=== PATIENT | female | born 1965 | race Caucasian/White ===

== ENCOUNTER 2024-06-09 23:23 | Emergency (ER) | payer MEDICAID ==
[~2024-06-09] VITALS: Ht 149.9 cm; Wt 54.4 kg
[2024-06-09 23:39] VITALS: BP 124/59; PULSE 67; RESP 16; TEMP 96.8; O2SAT 100
--- NOTE | 2024-06-09 23:47 | NUR ---
TO BED 6 FOLLOWING TRIAGE
[2024-06-09 23:48] VITALS: BP 124/59; PULSE 67; RESP 16; TEMP 96.8
[2024-06-10] VITALS: O2SAT 97
--- NOTE | 2024-06-10 | NUR ---
58YR OLD FEMALE AOX4 BIB SELF C/O SHORTNESS OF BREATH FOR THE LAST 2 DAYS. PT ALSO C/O ASSOCIATED CHEST PAIN, NON RADIATING. PT DENIES ANY FEVER, CHILLS, HX OF ASTHMA, OR ANY OTHER COMPLAINTS AT THIS TIME. PT IN BED WITH HOB ELEVATED, CALL LIGHT WITHIN REACH. FAMILY AT BEDSIDE. NKDA DENIES MED HX
[2024-06-10 00:07] LABS: BASOPHILS % (AUTO) 0.6 % (0.0-2.0); EOSINOPHILS # (AUTO) 0.2 K/uL (0-0.4); EOSINOPHILS % (AUTO) 2.9 % (0.0-4.0); HEMATOCRIT 41.1 % (36-48); HEMOGLOBIN 13.8 g/dL (12.0-16.0); MEAN CORPUSCULAR HEMOGLOBIN 30 pg (27-31); MEAN CORPUSCULAR HGB CONC 33 g/dL (33-37); MONOCYTES # (AUTO) 0.6 K/uL (0.8-1.0); MONOCYTES % (AUTO) 8.1 % (1.7-9.3); NEUTROPHILS # (AUTO) 3.4 K/uL (1.8-7.7); NEUTROPHILS % (AUTO) 46.4 % (42.2-75.2); PLATELET COUNT (AUTO) 375 K/uL (140-450); RED BLOOD CELL COUNT(AUTO) 4.62 MIL/uL (4.20-5.40); RED CELL DISTRIBUTION WIDTH 13.9 % (11.6-13.7); WHITE BLOOD COUNT (AUTO) 7.3 K/uL (4.8-10.8)
[2024-06-10 00:21] LABS: FLU A ANTIGEN negative (NEGATIVE); FLU B ANTIGEN NEGATIVE (NEGATIVE)
[2024-06-10 00:22] LABS: ANION GAP 11.7 (8-16); CALCIUM 9.2 mg/dL (8.5-10.1); CARBON DIOXIDE 27.4 mmol/L (21-32); CREATININE 0.7 mg/dL (0.6-1.3); POTASSIUM 4.1 mmol/L (3.5-5.1)
--- NOTE | 2024-06-10 00:30 | NUR ---
RADIOLOGY AT BEDSIDE FOR CHEST XRAY
--- NOTE | 2024-06-10 00:47 | NUR ---
Patient discharged with v/s stable. Written and verbal after care instructions given and explained. Patient verbalized understanding. Ambulatory with steady gait. All questions addressed prior to discharge. Advised to follow up with PMD.
== END 2024-06-10 00:47 | disposition home or self-care (01) ==
LOC: MED 23:23
DX: R06.02 Shortness of breath (principal); R07.9 Chest pain, unspecified; Z20.822 Contact with and (suspected) exposure to COVID-19
CPT/HCPCS: 36415; 71045; 80048; 83880; 84484; 85025; 85379; 87426; 87804; 99284; Q0092